=== PATIENT | female | born 1945 | race Caucasian/White ===

== ENCOUNTER 2017-10-02 19:21 | Inpatient (IN) | payer MEDICARE, MEDICAID ==
[~2017-10-02] VITALS: Ht 167.6 cm; Wt 94.3 kg
[2017-10-02 20:39] LABS: EOSINOPHILS # (AUTO) 0.1 K/uL (0.0-0.7); HEMOGLOBIN 9.1 g/dL (10.9-14.3); MONOCYTES % (AUTO) 15.9 % (0.0-11.0)
[2017-10-02 20:41] LABS: CARBON DIOXIDE 26 mmol/L (21-32); CHLORIDE 106 mmol/L (98-107); CREATININE 1.1 mg/dL (0.6-1.3); GLUCOSE 89 mg/dL (74-106); UREA NITROGEN, BLOOD 24 mg/dL (7-18)
[2017-10-02 20:44] LABS: BASOPHILS % (AUTO) 0.5 % (0.0-2.0); EOSINOPHILS % (AUTO) 0.8 % (0.0-7.0); HEMATOCRIT 29.1 % (31.2-41.9); LYMPHOCYTES # (AUTO) 2.3 K/uL (20.0-40.0); LYMPHOCYTES % (AUTO) 23.2 % (20.5-51.5); MEAN CORPUSCULAR HEMOGLOBIN 20.8 uug (24.7-32.8); MEAN CORPUSCULAR HGB CONC 31 g/dL (32.3-35.6); MEAN CORPUSCULAR VOLUME 66.6 fL (75.5-95.3); MONOCYTES # (AUTO) 1.6 K/uL (2.0-10.0); NEUTROPHILS # (AUTO) 5.9 K/uL (1.8-8.9); NEUTROPHILS % (AUTO) 59.6 % (38.5-71.5); PLATELET COUNT (AUTO) 300 K/uL (179-408); RED BLOOD CELL COUNT(AUTO) 4.37 MIL/uL (3.63-4.92); WHITE BLOOD COUNT (AUTO) 9.9 K/uL (3.8-11.8)
[2017-10-02 20:48] LABS: ALANINE AMINOTRANSFERASE 31 U/L (14-59); ALKALINE PHOSPHATASE 332 U/L (50-136); ASPARTATE AMINOTRANSFERASE 38 U/L (15-37); BILIRUBIN,DIRECT < 0.1 mg/dL (0.0-0.2); BILIRUBIN,TOTAL 0.3 mg/dL (0.2-1.0)
[2017-10-02] MEDS ORDERED: ACET325T53 PO (20:49)
[2017-10-02] MEDS ORDERED: MAGN400C PO (20:49)
[2017-10-02] MEDS ORDERED: TRAM50TA2 PO (20:49)
[2017-10-02] MEDS ORDERED: FERR325T6 PO (20:49)
[2017-10-02] MEDS ORDERED: LEVO175T7 PO (20:49)
[2017-10-02] MEDS ORDERED: AMIN30LI2 PO (20:49)
[2017-10-02] MEDS ORDERED: INSU3INS6 SQ (20:49)
[2017-10-02] MEDS ORDERED: PANT40TA2 PO (20:49)
[2017-10-02] MEDS ORDERED: LORA0.5T48 PO (20:49)
[2017-10-02] MEDS ORDERED: CLON0.5T PO (20:49)
[2017-10-02] MEDS ORDERED: PHEN100C4 PO ×2 (20:49)
[2017-10-02] MEDS ORDERED: BLOO-140 IN (20:49)
[2017-10-02] MEDS ORDERED: PHEN51CR RC (20:49)
[2017-10-02] MEDS ORDERED: ASPI81TA31 PO (20:49)
[2017-10-02] MEDS ORDERED: GLIP5TAB13 PO (20:49)
[2017-10-02] MEDS ORDERED: LOSA25TA13 PO (20:49)
[2017-10-02] MEDS ORDERED: LOPE2CAP40 PO (20:49)
[2017-10-02] MEDS ORDERED: METO25TA6 PO (20:49)
[2017-10-02] MEDS ORDERED: MULT-213 PO (20:49)
[2017-10-02] MEDS ORDERED: GABA-534 PO (20:49)
[2017-10-02] MEDS ORDERED: QUET50TA PO (20:49)
[2017-10-02 20:50] LABS: ACETAMINOPHEN < 2.0 ug/mL (10-30)
[2017-10-02 21:04] LABS: BAND % (MANUAL) 10 % (0-10); ETHANOL < 3 MG/DL (0-0); LYMPHOCYTES % (MANUAL) 24 % (20-40); MONOCYTES % (MANUAL) 13 % (2-10); NEUTROPHILS % (MANUAL) 53 % (42-75)
[2017-10-02 21:58] LABS: *AMPHETAMINE, URINE NEGATIVE (NEGATIVE); *BARBITURATE, URINE NEGATIVE (NEGATIVE); *CANNABINOID, URINE NEGATIVE (NEGATIVE); *COCCAINE, URINE NEGATIVE (NEGATIVE); *OPIATE, URINE NEGATIVE (NEGATIVE); *PHENCYCLIDINE SCREEN,URINE NEGATIVE (NEGATIVE)
--- NOTE | 2017-10-02 21:59 | NUR ---
Call placed to Rufus Dimas LCSW, for PET evaluation, ETA 60 min.
[2017-10-02 22:00] LABS: *BILIRUBIN,URIN NEGATIVE (NEGATIVE); *BLOOD, URINE 1+ (NEGATIVE); *CLARITY,URINE SLIGHTLY CLOUDY (CLEAR); *COLOR,URINE YELLOW (YELLOW); *KETONES,URINE NEGATIVE (NEGATIVE); *UROBILINOGEN,URINE 0.2 E.U./dl (NORMAL); LEUKOCYTE ESTERASE ,URINE NEGATIVE (NEGATIVE); NITRITE, URINE NEGATIVE (NEGATIVE); PH,URINE 6.5 (5.0-8.0); UGLUCOSE NEGATIVE (NEGATIVE)
[2017-10-02 22:08] LABS: *PROTEIN,URINE 3+ (NEGATIVE)
[2017-10-02 22:12] LABS: BACTERIA,URINE MODERATE /HPF (NONE SEEN); MUCUS,URINE FEW /LPF (0-FEW); SQUAMOUS EPITHELIAL CELL,UR MANY /HPF (NONE SEEN); WBC,URINE 0-3 /HPF (0-3)
--- NOTE | 2017-10-03 00:13 | NUR ---
TRASNPORTED PATIENT VIA WC TO U.
[2017-10-03] MEDS ORDERED: MAG HYDROX/AL HYDROX/SIMETH 30 ML LIQUID UDC PO PRN (00:15)
[2017-10-03] MEDS ORDERED: MAGNESIUM HYDROXIDE 30 ML LIQUID UDC PO PRN (00:15)
[2017-10-03] MEDS ORDERED: TEMAZEPAM 7.5 MG CAPSULE PO PRN (00:15)
[2017-10-03] MEDS ORDERED: ACETAMINOPHEN 325 MG TABLET ONE (00:59)
[2017-10-03] MEDS ORDERED: LORAZEPAM 1 MG TABLET ONE (01:00)
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
[2017-10-03 01:02] VITALS: BP 167/77
[2017-10-03 07:30] VITALS: BP 94/51
[2017-10-03] MEDS ORDERED: DEXTROSE 50% 50 ML DISP.SYRIN IV PRN (11:00)
[2017-10-03] MEDS ORDERED: PANTOPRAZOLE SODIUM 40 MG TABLET.DR PO SCH (11:00)
[2017-10-03] MEDS ORDERED: PHENYTOIN SODIUM EXTENDED 100 MG CAPSULE.SA PO SCH ×2 (11:00→18:00)
[2017-10-03] MEDS ORDERED: LEVOTHYROXINE SODIUM 175 MCG TABLET PO SCH (11:00)
[2017-10-03] MEDS: BLOOD SUGAR DIAGNOSTIC 1 EACH STRIP VI SCH ×3 (11:43→20:32)
[2017-10-03] MEDS: glipiZIDE 5 MG TABLET PO SCH (11:57)
[2017-10-03] MEDS: FERROUS SULFATE 325 MG TABEC PO SCH ×2 (11:58→20:56)
[2017-10-03] MEDS: ACETAMINOPHEN 325 MG TABLET PO PRN (11:58)
[2017-10-03] MEDS: INSULIN REGULAR, HUMAN 300 UNIT/3 ML VIAL SQ PRN ×2 (12:04→17:38)
[2017-10-03] MEDS: MAGNESIUM OXIDE 400 MG TABLET PO SCH (12:15)
[2017-10-03] MEDS: MULTIVITAMINS,THERAPEUTIC TABLET PO SCH (12:15)
[2017-10-03] MEDS: PANTOPRAZOLE SODIUM 40 MG TABLET.DR PO SCH (12:15)
[2017-10-03] MEDS: LEVOTHYROXINE SODIUM 175 MCG TABLET PO SCH (12:35)
[2017-10-03] MEDS: INSULIN DETEMIR 300 UNIT/3 ML CARTRIDGE SQ SCH ×2 (12:54→17:38)
[2017-10-03] MEDS: GABAPENTIN 300 MG CAPSULE PO SCH ×2 (12:59→17:43)
[2017-10-03] MEDS: LORAZEPAM 1 MG TABLET PO PRN (14:43)
[2017-10-03 15:09] VITALS: BP 152/74
[2017-10-03] MEDS ORDERED: INSULIN GLARGINE,HUM 300 UNITS/3 ML CARTRIDGE SQ SCH (17:00)
[2017-10-03] MEDS ORDERED: Medication Not On Formulary EA (Ferrous Sulfate 325 MG) PO SCH (17:00)
--- NOTE | 2017-10-03 20:10 | NUR ---
PT IS VERY VISIBLE ON THE UNIT, VERY NEEDY, ASKING THE SAME THING OVER, SEEN BY THE PSYCHIATRIST-DR HEBERT, PT IS FOCUSSED ON HER 72 HOUR HOLD, ASKING IF THE DR WILL DISCHARGE HER AT THE END OF THE HOLD, MORE RECEPTIVE TO STAFF, MORE COOPERATIVE THIS EVENING THAN WHEN SHE WAS ADMITTED, PT WILL BE STARTED ON SEROQUEL TONIGHT, BEDTIME SNACKS GIVEN, WILL CONTINUE TO MONITOR CLOSELY.
[2017-10-03 20:38] VITALS: BP 132/77
[2017-10-03] MEDS: CLONAZEPAM 1 MG TABLET PO SCH (20:56)
[2017-10-03] MEDS: QUETIAPINE FUMARATE 25 MG TABLET PO SCH (21:05)
[2017-10-04] MEDS: BLOOD SUGAR DIAGNOSTIC 1 EACH STRIP VI SCH ×4 (06:36→21:47)
[2017-10-04] MEDS: LEVOTHYROXINE SODIUM 175 MCG TABLET PO SCH (06:37)
[2017-10-04] MEDS: PANTOPRAZOLE SODIUM 40 MG TABLET.DR PO SCH (06:37)
[2017-10-04 07:30] VITALS: BP 148/74
--- NOTE | 2017-10-04 08:58 | NUR ---
Firearms Report: Keyboard Operator completed and submitted [facility] Firearms Report on 10/04/17.
[2017-10-04] MEDS ORDERED: Medication Not On Formulary EA (Multivitamins W-Minerals (Multivitamin With Minerals) 1 PO SCH (09:00)
[2017-10-04] MEDS: QUETIAPINE FUMARATE 25 MG TABLET PO SCH ×2 (09:10→20:05)
[2017-10-04] MEDS: FERROUS SULFATE 325 MG TABEC PO SCH ×2 (09:10→20:05)
[2017-10-04] MEDS: MULTIVITAMINS,THERAPEUTIC TABLET PO SCH (09:11)
[2017-10-04] MEDS: GABAPENTIN 300 MG CAPSULE PO SCH ×3 (09:11→17:32)
[2017-10-04] MEDS: ASPIRIN 81 MG TAB.CHEW PO SCH (09:11)
[2017-10-04] MEDS: glipiZIDE 5 MG TABLET PO SCH (09:11)
[2017-10-04] MEDS: MAGNESIUM OXIDE 400 MG TABLET PO SCH (09:11)
[2017-10-04] MEDS: CLONAZEPAM 1 MG TABLET PO SCH ×2 (09:19→20:05)
[2017-10-04] MEDS: INSULIN DETEMIR 300 UNIT/3 ML CARTRIDGE SQ SCH ×2 (09:23→17:33)
[2017-10-04] MEDS ORDERED: LOPERAMIDE HCL 2 MG CAPSULE PO PRN (11:00)
--- NOTE | 2017-10-04 11:21 | NUR ---
Initial Discharge Instructions: Pt currently lives at [facility] [[address] [place] [address]; ] and would like to return there. Pt is also willing to look at other placement options if she is unable to return to [facility]. Left message for pt's mother Sanjuanita ([phone]) to discuss discharge plans. Spoke with Noe at [facility] ([phone]) who reports that pt is on a bed hold. SW will speak with pt, family, and MD regarding appropriate discharge plans. SW will form a safe and proper discharge.
[2017-10-04] MEDS: INSULIN REGULAR, HUMAN 300 UNIT/3 ML VIAL SQ PRN (12:19)
[2017-10-04 12:59] LABS: ALANINE AMINOTRANSFERASE 26 U/L (14-59); ALKALINE PHOSPHATASE 310 U/L (50-136); ASPARTATE AMINOTRANSFERASE 36 U/L (15-37); BILIRUBIN,TOTAL 0.3 mg/dL (0.2-1.0); CARBON DIOXIDE 21 mmol/L (21-32); CHLORIDE 104 mmol/L (98-107); CREATININE 1.3 mg/dL (0.6-1.3); GLUCOSE 284 mg/dL (74-106); MAGNESIUM 1.9 mg/dL (1.8-2.4); PHOSPHOROUS 3.6 mg/dL (2.5-4.9); POTASSIUM 4.5 mmol/L (3.5-5.1); TOTAL PROTEIN, SERUM 7.4 g/dL (6.4-8.2); UREA NITROGEN, BLOOD 25 mg/dL (7-18)
[2017-10-04 13:09] LABS: BASOPHILS # (AUTO) 0.1 K/uL (0.0-8.0); BASOPHILS % (AUTO) 0.7 % (0.0-2.0); EOSINOPHILS # (AUTO) 0.1 K/uL (0.0-0.7); EOSINOPHILS % (AUTO) 0.7 % (0.0-7.0); HEMATOCRIT 29.3 % (31.2-41.9); HEMOGLOBIN 9.1 g/dL (10.9-14.3); LYMPHOCYTES # (AUTO) 2.3 K/uL (20.0-40.0); LYMPHOCYTES % (AUTO) 25.1 % (20.5-51.5); MEAN CORPUSCULAR HEMOGLOBIN 20.7 uug (24.7-32.8); MEAN CORPUSCULAR HGB CONC 31 g/dL (32.3-35.6); MEAN CORPUSCULAR VOLUME 66.7 fL (75.5-95.3); MONOCYTES # (AUTO) 0.9 K/uL (2.0-10.0); MONOCYTES % (AUTO) 9.6 % (0.0-11.0); NEUTROPHILS % (AUTO) 63.9 % (38.5-71.5); PLATELET COUNT (AUTO) 268 K/uL (179-408); RED BLOOD CELL COUNT(AUTO) 4.39 MIL/uL (3.63-4.92); THYROID STIMULATING HORMONE 3.949 mIU/mL (0.358-3.740); WHITE BLOOD COUNT (AUTO) 9.3 K/uL (3.8-11.8)
[2017-10-04 13:59] LABS: IRON, SERUM 100 ug/dL (50-175)
[2017-10-04 14:11] LABS: BAND % (MANUAL) 3 % (0-10); EOSINOPHILS % (MANUAL) 1 % (0-8); LYMPHOCYTES % (MANUAL) 26 % (20-40); MONOCYTES % (MANUAL) 7 % (2-10); NEUTROPHILS % (MANUAL) 63 % (42-75)
[2017-10-04 15:00] VITALS: BP 149/74
--- NOTE | 2017-10-04 16:39 | NUR ---
blood sugar was 61 due to 37 units of levemir insulin in am patient asymptomatic and orange juice times two with chocolate pudding and apple juice no s/s of lethargy will continue to monuitor pts status.
--- NOTE | 2017-10-04 18:32 | NUR ---
patient very needy and pacing with walker pt had diarrhea times two and immodium given earlier. BLOOD GLUCOSE ON LOW SIDE IN AFTER NOON , STILL WITH BLACK EYE AND MULTIPLE SKIN BRUISING. DILANTIN LEVEL DOWN TO 23.0 FROM 29.O NO S/S SX ACTIVITY CONTINUE TO MONITOR PT S DIARRHEA
[2017-10-04 20:27] VITALS: BP 162/81
[2017-10-04] MEDS: GUAIFENESIN/DEXTROMETHORPHAN 5 ML UDC PO PRN (21:55)
[2017-10-05] MEDS: LEVOTHYROXINE SODIUM 175 MCG TABLET PO SCH (06:00)
[2017-10-05] MEDS: PANTOPRAZOLE SODIUM 40 MG TABLET.DR PO SCH (06:00)
[2017-10-05] MEDS: BLOOD SUGAR DIAGNOSTIC 1 EACH STRIP VI SCH ×4 (06:40→21:18)
[2017-10-05 07:30] VITALS: BP 156/80
[2017-10-05] MEDS: INSULIN DETEMIR 300 UNIT/3 ML CARTRIDGE SQ SCH (08:00)
[2017-10-05] MEDS: FERROUS SULFATE 325 MG TABEC PO SCH ×2 (08:53→21:21)
[2017-10-05] MEDS: QUETIAPINE FUMARATE 25 MG TABLET PO SCH ×2 (08:53→21:21)
[2017-10-05] MEDS: CLONAZEPAM 1 MG TABLET PO SCH ×2 (08:53→21:20)
[2017-10-05] MEDS: MAGNESIUM OXIDE 400 MG TABLET PO SCH (08:53)
[2017-10-05] MEDS: ASPIRIN 81 MG TAB.CHEW PO SCH (08:53)
[2017-10-05] MEDS: MULTIVITAMINS,THERAPEUTIC TABLET PO SCH (08:53)
[2017-10-05] MEDS: GABAPENTIN 300 MG CAPSULE PO SCH ×3 (08:53→17:55)
[2017-10-05] MEDS: glipiZIDE 5 MG TABLET PO SCH (08:55)
[2017-10-05 09:37] LABS: ALANINE AMINOTRANSFERASE 24 U/L (14-59); ALKALINE PHOSPHATASE 294 U/L (50-136); ASPARTATE AMINOTRANSFERASE 46 U/L (15-37); BILIRUBIN,TOTAL 0.3 mg/dL (0.2-1.0); CARBON DIOXIDE 25 mmol/L (21-32); CHLORIDE 108 mmol/L (98-107); CREATININE 1.1 mg/dL (0.6-1.3); GLUCOSE 127 mg/dL (74-106); MAGNESIUM 2.1 mg/dL (1.8-2.4); PHOSPHOROUS 3.7 mg/dL (2.5-4.9); POTASSIUM 5.3 mmol/L (3.5-5.1); TOTAL PROTEIN, SERUM 7.4 g/dL (6.4-8.2); UREA NITROGEN, BLOOD 21 mg/dL (7-18)
[2017-10-05 10:04] LABS: BASOPHILS # (AUTO) 0.1 K/uL (0.0-8.0); BASOPHILS % (AUTO) 0.5 % (0.0-2.0); EOSINOPHILS # (AUTO) 0.2 K/uL (0.0-0.7); EOSINOPHILS % (AUTO) 1.8 % (0.0-7.0); HEMATOCRIT 30.4 % (31.2-41.9); HEMOGLOBIN 9.2 g/dL (10.9-14.3); LYMPHOCYTES # (AUTO) 2.6 K/uL (20.0-40.0); MEAN CORPUSCULAR HEMOGLOBIN 20.4 uug (24.7-32.8); MEAN CORPUSCULAR HGB CONC 30 g/dL (32.3-35.6); MEAN CORPUSCULAR VOLUME 67.4 fL (75.5-95.3); MONOCYTES # (AUTO) 1.2 K/uL (2.0-10.0); MONOCYTES % (AUTO) 12.9 % (0.0-11.0); NEUTROPHILS # (AUTO) 5.2 K/uL (1.8-8.9); NEUTROPHILS % (AUTO) 56.8 % (38.5-71.5); PLATELET COUNT (AUTO) 310 K/uL (179-408); RED BLOOD CELL COUNT(AUTO) 4.51 MIL/uL (3.63-4.92); WHITE BLOOD COUNT (AUTO) 9.2 K/uL (3.8-11.8)
[2017-10-05] MEDS: METOPROLOL TARTRATE 25 MG TABLET PO SCH ×2 (11:00→17:55)
[2017-10-05] MEDS: LOSARTAN POTASSIUM 25 MG TABLET PO SCH (12:26)
[2017-10-05] MEDS: GUAIFENESIN/DEXTROMETHORPHAN 5 ML UDC PO PRN (12:26)
[2017-10-05] MEDS: INSULIN REGULAR, HUMAN 300 UNIT/3 ML VIAL SQ PRN ×2 (12:27→21:24)
[2017-10-05 13:33] LABS: EOSINOPHILS % (MANUAL) 5 % (0-8); LYMPHOCYTES % (MANUAL) 31 % (20-40); METAMYELOCYTES % 1 % (0-1); MONOCYTES % (MANUAL) 8 % (2-10); NEUTROPHILS % (MANUAL) 55 % (42-75)
[2017-10-05 16:56] VITALS: BP 150/66
[2017-10-05 20:00] VITALS: BP 148/76
[2017-10-05] MEDS: PHENYTOIN SODIUM EXTENDED 100 MG CAPSULE.SA PO SCH (21:21)
[2017-10-06] MEDS: LEVOTHYROXINE SODIUM 175 MCG TABLET PO SCH (06:37)
[2017-10-06] MEDS: PANTOPRAZOLE SODIUM 40 MG TABLET.DR PO SCH (06:37)
[2017-10-06] MEDS: BLOOD SUGAR DIAGNOSTIC 1 EACH STRIP VI SCH ×4 (06:37→20:01)
[2017-10-06 07:30] VITALS: BP 135/64
[2017-10-06] MEDS: METOPROLOL TARTRATE 25 MG TABLET PO SCH ×2 (08:21→16:51)
[2017-10-06] MEDS: LOSARTAN POTASSIUM 25 MG TABLET PO SCH (08:22)
[2017-10-06] MEDS: MAGNESIUM OXIDE 400 MG TABLET PO SCH (08:22)
[2017-10-06] MEDS: FERROUS SULFATE 325 MG TABEC PO SCH ×2 (08:22→20:01)
[2017-10-06] MEDS: GABAPENTIN 300 MG CAPSULE PO SCH ×3 (08:22→16:51)
[2017-10-06] MEDS: ASPIRIN 81 MG TAB.CHEW PO SCH (08:22)
[2017-10-06] MEDS: CLONAZEPAM 1 MG TABLET PO SCH ×2 (08:29→20:00)
[2017-10-06] MEDS: MULTIVITAMINS,THERAPEUTIC TABLET PO SCH (08:29)
[2017-10-06] MEDS: QUETIAPINE FUMARATE 25 MG TABLET PO SCH ×2 (08:36→20:00)
[2017-10-06] MEDS: PHENYTOIN SODIUM EXTENDED 100 MG CAPSULE.SA PO SCH ×2 (08:42→20:00)
[2017-10-06 11:21] LABS: *OCCULT BLOOD STOOL NEGATIVE (NEGATIVE)
[2017-10-06] MEDS: INSULIN REGULAR, HUMAN 300 UNIT/3 ML VIAL SQ PRN ×3 (12:02→20:05)
[2017-10-06 17:18] VITALS: BP 163/83
[2017-10-07] MEDS: LEVOTHYROXINE SODIUM 175 MCG TABLET PO SCH (06:06)
[2017-10-07] MEDS: PANTOPRAZOLE SODIUM 40 MG TABLET.DR PO SCH (06:06)
[2017-10-07] MEDS: BLOOD SUGAR DIAGNOSTIC 1 EACH STRIP VI SCH ×4 (06:44→20:01)
[2017-10-07 08:00] VITALS: BP 132/78
[2017-10-07] MEDS: INSULIN REGULAR, HUMAN 300 UNIT/3 ML VIAL SQ PRN ×5 (08:17→20:04)
[2017-10-07] MEDS: GABAPENTIN 300 MG CAPSULE PO SCH ×3 (08:37→16:04)
[2017-10-07] MEDS: MULTIVITAMINS,THERAPEUTIC TABLET PO SCH (08:37)
[2017-10-07] MEDS: FERROUS SULFATE 325 MG TABEC PO SCH ×3 (08:38→20:08)
[2017-10-07] MEDS: PHENYTOIN SODIUM EXTENDED 100 MG CAPSULE.SA PO SCH ×2 (08:38→20:06)
[2017-10-07] MEDS: MAGNESIUM OXIDE 400 MG TABLET PO SCH (08:38)
[2017-10-07] MEDS: LOSARTAN POTASSIUM 25 MG TABLET PO SCH (08:39)
[2017-10-07] MEDS: CLONAZEPAM 1 MG TABLET PO SCH ×2 (08:39→20:08)
[2017-10-07] MEDS: ASPIRIN 81 MG TAB.CHEW PO SCH (08:39)
[2017-10-07] MEDS: QUETIAPINE FUMARATE 25 MG TABLET PO SCH ×2 (08:40→20:08)
[2017-10-07] MEDS: METOPROLOL TARTRATE 25 MG TABLET PO SCH ×2 (08:44→16:04)
[2017-10-07 16:04] VITALS: BP 159/71
[2017-10-07 21:17] VITALS: BP 181/86
[2017-10-07] MEDS: LORAZEPAM 1 MG TABLET PO PRN (21:45)
--- NOTE | 2017-10-08 05:25 | NUR ---
PHARMACY NOTE: ATIVAN 1mg ADMINISTERED AT 2145 PER Pt REQUEST FOR ANXIETY. MED WAS SCANNED BUT ACCIDENTALLY NOT SAVED. Pt ALERT AND ORIENTED, CAN CONFIRM ATIVAN WAS ADMINISTERED TO HER AT THAT TIME.
[2017-10-08] MEDS: LEVOTHYROXINE SODIUM 175 MCG TABLET PO SCH (06:18)
[2017-10-08] MEDS: PANTOPRAZOLE SODIUM 40 MG TABLET.DR PO SCH (06:19)
[2017-10-08] MEDS: BLOOD SUGAR DIAGNOSTIC 1 EACH STRIP VI SCH ×4 (06:36→20:34)
[2017-10-08 07:30] VITALS: BP 161/73
[2017-10-08] MEDS: GABAPENTIN 300 MG CAPSULE PO SCH ×3 (08:33→16:48)
[2017-10-08] MEDS: QUETIAPINE FUMARATE 25 MG TABLET PO SCH ×2 (08:33→20:34)
[2017-10-08] MEDS: MULTIVITAMINS,THERAPEUTIC TABLET PO SCH (08:33)
[2017-10-08] MEDS: PHENYTOIN SODIUM EXTENDED 100 MG CAPSULE.SA PO SCH ×2 (08:33→20:34)
[2017-10-08] MEDS: CLONAZEPAM 1 MG TABLET PO SCH ×2 (08:34→20:34)
[2017-10-08] MEDS: ASPIRIN 81 MG TAB.CHEW PO SCH (08:34)
[2017-10-08] MEDS: MAGNESIUM OXIDE 400 MG TABLET PO SCH (08:35)
[2017-10-08] MEDS: METOPROLOL TARTRATE 25 MG TABLET PO SCH ×2 (08:36→16:54)
[2017-10-08] MEDS: LOSARTAN POTASSIUM 25 MG TABLET PO SCH (08:36)
[2017-10-08] MEDS: FERROUS SULFATE 325 MG TABEC PO SCH ×2 (08:36→20:46)
[2017-10-08] MEDS: INSULIN REGULAR, HUMAN 300 UNIT/3 ML VIAL SQ PRN ×4 (08:49→21:47)
[2017-10-08] MEDS: glipiZIDE 5 MG TABLET PO SCH ×2 (08:56→16:50)
[2017-10-08 11:07] LABS: BASOPHILS % (AUTO) 0.4 % (0.0-2.0); EOSINOPHILS # (AUTO) 0.1 K/uL (0.0-0.7); EOSINOPHILS % (AUTO) 1.2 % (0.0-7.0); HEMATOCRIT 30.3 % (31.2-41.9); HEMOGLOBIN 9.3 g/dL (10.9-14.3); LYMPHOCYTES # (AUTO) 2.9 K/uL (20.0-40.0); LYMPHOCYTES % (AUTO) 29.3 % (20.5-51.5); MEAN CORPUSCULAR HGB CONC 31 g/dL (32.3-35.6); MEAN CORPUSCULAR VOLUME 68.3 fL (75.5-95.3); MONOCYTES # (AUTO) 0.5 K/uL (2.0-10.0); MONOCYTES % (AUTO) 5.4 % (0.0-11.0); NEUTROPHILS # (AUTO) 6.3 K/uL (1.8-8.9); NEUTROPHILS % (AUTO) 63.7 % (38.5-71.5); PLATELET COUNT (AUTO) 327 K/uL (179-408); RED BLOOD CELL COUNT(AUTO) 4.43 MIL/uL (3.63-4.92); WHITE BLOOD COUNT (AUTO) 9.9 K/uL (3.8-11.8)
[2017-10-08 11:19] LABS: ALANINE AMINOTRANSFERASE 44 U/L (14-59); ALKALINE PHOSPHATASE 193 U/L (50-136); ASPARTATE AMINOTRANSFERASE 48 U/L (15-37); BILIRUBIN,TOTAL 0.2 mg/dL (0.2-1.0); CARBON DIOXIDE 25 mmol/L (21-32); CHLORIDE 106 mmol/L (98-107); CREATININE 1.1 mg/dL (0.6-1.3); PHOSPHOROUS 3.3 mg/dL (2.5-4.9); POTASSIUM 5.1 mmol/L (3.5-5.1); TOTAL PROTEIN, SERUM 7.5 g/dL (6.4-8.2); UREA NITROGEN, BLOOD 24 mg/dL (7-18)
[2017-10-08 11:44] LABS: GLUCOSE 346 mg/dL (74-106)
[2017-10-08 17:24] VITALS: BP 147/71
[2017-10-08 20:13] VITALS: BP 158/80
[2017-10-09] MEDS: BLOOD SUGAR DIAGNOSTIC 1 EACH STRIP VI SCH ×2 (06:50→11:44)
[2017-10-09] MEDS: PANTOPRAZOLE SODIUM 40 MG TABLET.DR PO SCH (07:06)
[2017-10-09] MEDS: LEVOTHYROXINE SODIUM 175 MCG TABLET PO SCH (07:06)
[2017-10-09] MEDS: glipiZIDE 5 MG TABLET PO SCH (07:07)
[2017-10-09 08:00] VITALS: BP 196/89
[2017-10-09] MEDS: INSULIN REGULAR, HUMAN 300 UNIT/3 ML VIAL SQ PRN ×2 (08:33→12:12)
[2017-10-09] MEDS: ACETAMINOPHEN 325 MG TABLET PO PRN (08:49)
[2017-10-09] MEDS: MAGNESIUM OXIDE 400 MG TABLET PO SCH (08:51)
[2017-10-09] MEDS: QUETIAPINE FUMARATE 25 MG TABLET PO SCH (08:51)
[2017-10-09] MEDS: PHENYTOIN SODIUM EXTENDED 100 MG CAPSULE.SA PO SCH (08:51)
[2017-10-09 08:52] VITALS: BP 146/89
[2017-10-09] MEDS: METOPROLOL TARTRATE 25 MG TABLET PO SCH (08:52)
[2017-10-09] MEDS: LOSARTAN POTASSIUM 25 MG TABLET PO SCH (08:52)
[2017-10-09] MEDS: GABAPENTIN 300 MG CAPSULE PO SCH ×2 (08:52→12:41)
[2017-10-09] MEDS: ASPIRIN 81 MG TAB.CHEW PO SCH (08:52)
[2017-10-09] MEDS: MULTIVITAMINS,THERAPEUTIC TABLET PO SCH (08:52)
[2017-10-09] MEDS: CLONAZEPAM 1 MG TABLET PO SCH (08:53)
[2017-10-09] MEDS: FERROUS SULFATE 325 MG TABEC PO SCH (08:53)
--- NOTE | 2017-10-09 11:37 | NUR ---
DC Note: Patient will be discharge to [facility] [[address] [place] [address]; ] via ambulance at 1pm. Spoke with Allan at the facility who states they are ready to accept the patient today. Pt is aware and agreeable with discharge plans. Patient will follow-up at the facility with Dr. Aguiar (Manager Interface) and Dr. Whitten (Psychiatrist). Addendum: 10/09/17 at 1406 by PASQUALE MUÑOZ Spoke with pt's mother, Shanique ([phone]) who is aware and agreeable with discharge plans.
--- NOTE | 2017-10-09 15:58 | NUR ---
1200 CALLED FOR REPORT TO [facility] SPOKE TO JUNIE THE ADMISSION NURSE AND INFORMED ABOUT PATIENT ACCEPTED TO [facility]. nURSE INFORMED ABOUT PATIENT DX, , MEDICATIONS TO CONTINUE UPON DISCHARGED TO HOSPITAL. 1545 PATIENT PICKED UP BY AMBULANCE AND DISCHARGED TO SNF MENTIONED ABOVE. , ALERT AND OX3, DENIES SI/HI. NO DELUSION / NO HALLUCINATION NOTED.
== END 2017-10-09 15:45 | DRG 885 ==
LOC: ER 19:22 → GPS 23:57
PROVIDERS: ADMIT Psychiatry & Neurology Psychiatry; ATTEND Internal Medicine
DX: F23 Brief psychotic disorder (principal); E43 Unspecified severe protein-calorie malnutrition; E11.65 Type 2 diabetes mellitus with hyperglycemia; E87.5 Hyperkalemia; D64.9 Anemia, unspecified; S00.12XA Contusion of left eyelid and periocular area, initial encounter; E03.9 Hypothyroidism, unspecified; G40.909 Epilepsy, unspecified, not intractable, without status epilepticus; Z79.899 Other long term (current) drug therapy; Y33.XXXA Other specified events, undetermined intent, initial encounter; Y92.129 Unspecified place in nursing home as the place of occurrence of the external cause; Z79.4 Long term (current) use of insulin; Z87.440 Personal history of urinary (tract) infections; Z91.5 Personal history of self-harm; Z86.59 Personal history of other mental and behavioral disorders; Z68.33 Body mass index [BMI] 33.0-33.9, adult; E66.9 Obesity, unspecified; E78.5 Hyperlipidemia, unspecified; F41.9 Anxiety disorder, unspecified; I10 Essential (primary) hypertension; Z79.82 Long term (current) use of aspirin; R19.7 Diarrhea, unspecified; R05 Cough; S05.12XA Contusion of eyeball and orbital tissues, left eye, initial encounter
CPT/HCPCS: 36415; 71010; 80307; 83550; 83735; 84100; 84443; 85025; 93005; A4663; G0480; G0480-TC; J1815